=== PATIENT | female | born 1985 | race Caucasian/White ===

== ENCOUNTER 2022-02-20 03:33 | Emergency (ER) | payer MEDICAID, SELFPAY ==
--- NOTE | ~2022-02-20 | XR_ITS ---
EXAMINATION: XR CHEST CLINICAL INFORMATION: Shortness of breath. Cough. COMPARISON: None TECHNIQUE: Frontal view of the chest was obtained. FINDINGS: Cardiac leads overlie the chest. The lungs are well expanded. There is no focal consolidation, edema, or effusion. No pneumothorax. The cardiomediastinal silhouette is within normal limits. No acute osseous abnormality. XR/XR chest 1V IMPRESSION: Clear lungs.
[2022-02-20 03:41] VITALS: BP 113/57; PULSE 88; RESP 19; TEMP 36.7; O2SAT 98; BMI 27.8
[2022-02-20 04:06] LABS: Basophils Percent Auto 0.2 % (0-2); Eosinophils Absolute Auto 0.1 X10*3/uL (0.0-0.4); Eosinophils Percent Auto 1.1 % (0-4); Hematocrit 33.7 % (37.0-47.0); Hemoglobin 10.1 g/dl (12.0-16.0); Imm Gran Abs Auto 0.01 X10*3/uL (0.00-0.03); Imm Gran Pct Auto 0.2 % (0.0-0.4); Lymphocytes Absolute Auto 2.4 X10*3/uL (1.2-4.9); Lymphocytes Percent Auto 42.4 % (20-40); MANUAL DIFF FLAG NO; Mean Corpuscular Hemoglobin 22.5 pg (27.0-33.0); Mean Corpuscular Volume 75.2 fL (80.0-98.0); Mean Platelet Volume 10.7 fL (9.4-12.3); Monocytes Absolute Auto 0.6 X10*3/uL (0.1-1.2); Monocytes Percent Auto 11.5 % (2-11); Neutrophils Absolute Auto 2.5 x10*3/uL (2.0-8.3); Neutrophils Percent Auto 44.6 % (45-73); Platelet Count 287 X10*3/uL (160-400); Red Blood Count 4.48 X10*6/uL (4.20-5.50); Red Cell Distribution Width 16.8 % (11.0-16.0); White Blood Count 5.6 X10*3/uL (4.8-10.8)
--- NOTE | 2022-02-20 04:10 | ED.URI ---
HPI - URI/Sore Throat General Chief Complaint: Upper Respiratory Symptoms Stated Complaint: Asthmatic Time Seen by Provider: 02/20/22 04:02 Source: patient Mode of arrival: ambulatory Limitations: no limitations History of Present Illness HPI Narrative: Patient comes to the emergency room complaining complaining of dry cough multiple lacerations. Patient states that she ran her inhaler yesterday. Patient denies fever chills, no pain, no UTI symptoms Related Data Previous Rx's Medication Instructions Recorded albuterol sulfate 90 mcg/actuation 2 puff INHALATION Q4-6H PRN #8.5 g 02/20/22 aerosol inhaler benzonatate 100 mg capsule 100 mg PO TID PRN #14 cap 02/20/22 prednisone 50 mg tablet 50 mg PO DAILY #4 tab 02/20/22 Allergies Allergy/AdvReac Type Severity Reaction Status Date / Time ibuprofen [IBUPROFEN] Allergy Unknown UNKNOWN Unverified 06/17/20 16:45 Review of Systems Review of Systems: Constitutional : No Weight loss, No Fever, No Chills, No Night Sweats, No Fatigue, No Malaise ENT/Mouth : No Hearing loss, No Ear Pain, No Nasal Congestion, No Sinus Pain, No Hoarseness, No sore throat, No Rhinorrhea, No Swallowing Difficulty Eyes: No Eye Pain, No Swelling, No Redness, No Foreign Body, No Discharge, No Vision Changes Cardiovascular : No Chest Pain, No SOB, No Dyspnea on Exertion, No Orthopnea, No Edema, No Palpitations Respiratory : Complaining of breath cough wheezing shortness of breath at this time Gastrointestinal : No Nausea, No Vomiting, No Diarrhea, No Constipation, No abdominal Pain, No Hematochezia, No Melena Genitourinary : no irregular bleeding, No Dysuria, No Urinary Frequency, No Hematuria, No Urinary Incontinence, No Urgency, No Flank Pain, No Urinary Flow Changes, No Hesitancy Musculoskeletal : No joint pain, No Myalgias, No Joint Swelling Skin : No Skin Lesions, No rash Neuro : No Weakness, No Numbness, No Paresthesias, No Loss of Consciousness, No Dizziness, No Headache Psych : No Anxiety/Panic, No Depression, No SI/HI/AH/VH, No Social Issues, Heme/Lymph: No Bruising, No Bleeding,No Lymphadenopathy Endocrine : No Polyuria, No Polydipsia, No Temperature Intolerance [facility] Past Medical History Medical History (Updated 02/20/22 @ 05:17 by Johanna Strange MD) Asthma exacerbation Social History Social History Alcohol intake: never Patient Tobacco Use Status: Never used Tobacco Use of substances other than those prescribed or required for medical reasons: Yes Substance Use Type: Marijuana Substance Use Frequency: Daily Physical Exam Vital Signs: Vital Signs: Last Vital Signs Temp 98.1 F 02/20/22 03:41 Pulse 88 02/20/22 03:41 Resp 19 02/20/22 03:41 BP 113/57 L 02/20/22 03:41 Pulse Ox 98 02/20/22 03:41 BMI result Body Mass Index 27.8 Const: Other: Appearance: Alert. Oriented X3. No acute distress. Eyes: Pupils equal, round and reactive to light. ENT: Pharynx normal. Neck: Normal inspection. Neck supple. No lymph nodes noted. No crepitus CVS: Normal heart rate and rhythm. Pulses normal. Normal S1 and S2 Respiratory: No respiratory distress. Breath sounds normal. No Wheezing. No rales , actively coughing Abdomen: Soft and nontender. No rigidity. No distention. Skin: Skin warm and dry. Normal skin color. Normal skin turgor. Extremities: No lower extremity edema. No Lacerations. No Rash Neuro: Oriented X 3. No motor deficit. No sensory deficit. Moving all extremities. No slurred speech. CN 2 through 12 grossly intact Psych: calm, cooperative, normal affect Course Course Course Narrative: Patient's labs and chest x-ray, flu and COVID pending I discussed the labs and imaging with the patient, patient given 1 dose Tessalon Perles and prednisone. Oxygen saturation remains at 99% on room air. Patient breathing comfortably, occasional coughing, no wheezing MDM - URI/Sore Throat Lab Data Result diagrams: 02/20/22 04:00 02/20/22 04:00 Labs: Lab Results 02/20/22 02/20/22 02/20/22 Range/Units 04:00 04:00 04:00 WBC 5.6 (4.8-10.8) X10*3/uL RBC 4.48 (4.20-5.50) X10*6/uL Hgb 10.1 L (12.0-16.0) g/dl Hct 33.7 L (37.0-47.0) % MCV 75.2 L (80.0-98.0) fL MCH 22.5 L (27.0-33.0) pg MCHC 30.0 L (31.0-35.0) g/dl RDW 16.8 H (11.0-16.0) % Plt Count 287 (160-400) X10*3/uL MPV 10.7 (9.4-12.3) fL Immature Gran % (Auto) 0.2 (0.0-0.4) % Neut % (Auto) 44.6 L (45-73) % Lymph % (Auto) 42.4 H (20-40) % Foster % (Auto) 11.5 H (2-11) % Eos % (Auto) 1.1 (0-4) % Baso % (Auto) 0.2 (0-2) % Lymph # (Auto) 2.4 (1.2-4.9) X10*3/uL Foster # (Auto) 0.6 (0.1-1.2) X10*3/uL Eos # (Auto) 0.1 (0.0-0.4) X10*3/uL Baso # (Auto) 0.0 (0.0-0.2) X10*3/uL Abs Immat Gran (auto) 0.01 (0.00-0.03) X10*3/uL Absolute Neuts (auto) 2.5 (2.0-8.3) x10*3/uL Absolute Nucleated RBC 0.000 (0.0-0.012) X10*3/uL Nucleated RBC % (auto) 0.0 (0.0-0.2) /100WBC Sodium 139 (135-145) mmol/L Potassium 3.3 (3.3-5.1) mmol/L Chloride 104 (96-108) mmol/L Carbon Dioxide 26 (22-29) mmol/L Anion Gap 12 (12-20) BUN 13 (9-16) mg/dL Creatinine 0.73 (0.5-1.4) mg/dL Estim Creat Clear Calc 92.1 Estimated GFR > 60 Random Glucose 86 (60-115) mg/dL Calcium 9.1 (8.4-10.2) mg/dL COVID-19 (THELMA) Negative (Negative) COVID-19 Clin Com See Note Influenza Type A ([facility]) (Negative) Influenza Type B ([place]) (Negative) Influenza A & B Note 02/20/22 Range/Units 04:16 WBC (4.8-10.8) X10*3/uL RBC (4.20-5.50) X10*6/uL Hgb (12.0-16.0) g/dl Hct (37.0-47.0) % MCV (80.0-98.0) fL MCH (27.0-33.0) pg MCHC (31.0-35.0) g/dl RDW (11.0-16.0) % Plt Count (160-400) X10*3/uL MPV (9.4-12.3) fL Immature Gran % (Auto) (0.0-0.4) % Neut % (Auto) (45-73) % Lymph % (Auto) (20-40) % Foster % (Auto) (2-11) % Eos % (Auto) (0-4) % Baso % (Auto) (0-2) % Lymph # (Auto) (1.2-4.9) X10*3/uL Foster # (Auto) (0.1-1.2) X10*3/uL Eos # (Auto) (0.0-0.4) X10*3/uL Baso # (Auto) (0.0-0.2) X10*3/uL Abs Immat Gran (auto) (0.00-0.03) X10*3/uL Absolute Neuts (auto) (2.0-8.3) x10*3/uL Absolute Nucleated RBC (0.0-0.012) X10*3/uL Nucleated RBC % (auto) (0.0-0.2) /100WBC Sodium (135-145) mmol/L Potassium (3.3-5.1) mmol/L Chloride (96-108) mmol/L Carbon Dioxide (22-29) mmol/L Anion Gap (12-20) BUN (9-16) mg/dL Creatinine (0.5-1.4) mg/dL Estim Creat Clear Calc Estimated GFR Random Glucose (60-115) mg/dL Calcium (8.4-10.2) mg/dL COVID-19 ([facility]) (Negative) COVID-19 Clin Com Influenza Type A ([place]) Negative (Negative) Influenza Type B ([place]) Negative (Negative) Influenza A & B Note See Note Discharge Plan Discharge Clinical Impression: Asthma exacerbation, Upper respiratory infection Patient Disposition: Home, Self-Care Instructions: Asthma (ED) Additional Instructions: Please follow-up with your primary care physician tomorrow. If you have any worsening or new symptoms, please return to the emergency room or call 911 Prescriptions: New albuterol sulfate 90 mcg/actuation HFA aerosol inhaler 2 puff inhalation Q4-6H PRN (Reason: shortness of breath or wheezing) Qty: 8.5 1RF prednisone 50 mg tablet 50 mg PO DAILY Qty: 4 0RF benzonatate 100 mg capsule 100 mg PO TID PRN (Reason: cough) Qty: 14 0RF
[2022-02-20 04:20] LABS: COVID-19 Test Negative (Negative)
[2022-02-20] MEDS: Benzonatate 100 MG CAPSULE 200 MG PO (04:21)
[2022-02-20 04:24] LABS: Anion Gap 12 (12-20); Blood Urea Nitrogen 13 mg/dL (9-16); Calcium 9.1 mg/dL (8.4-10.2); Carbon Dioxide 26 mmol/L (22-29); Chloride 104 mmol/L (96-108); Creatinine Clr Calc Pharmacy 92.1; Estimated Glomerular Filt Rate > 60; Glucose Random 86 mg/dL (60-115); Potassium 3.3 mmol/L (3.3-5.1); Sodium 139 mmol/L (135-145)
[2022-02-20 04:38] LABS: IDNOW Serial# 16C4AD1C; Influenza A Negative (Negative); Influenza B2 Negative (Negative)
[2022-02-20] MEDS: predniSONE 20 MG TABLET 60 MG PO (05:38)
== END 2022-02-20 05:47 | disposition home or self-care (01) ==
LOC: HO.ED 05:44
PROVIDERS: Emergency Provider Emergency Medicine
DX: J06.9 Acute upper respiratory infection, unspecified (principal); J45.901 Unspecified asthma with (acute) exacerbation; Z20.822 Contact with and (suspected) exposure to COVID-19
CPT/HCPCS: 36415; 71045; 80048; 85025; 87502; 87635; 99283; 99284

== ENCOUNTER 2024-04-11 07:15 | Emergency (ER) | payer OTHER, SELFPAY ==
[2024-04-11 07:17] VITALS: BP 129/71; PULSE 68; RESP 20; TEMP 36.5; O2SAT 99; BMI 32.7
--- NOTE | 2024-04-11 07:24 | ED.ALLEREA ---
HPI - Allergic Reaction General Chief complaint: Allergic Reaction Stated complaint: Allergic reaction Time Seen by Provider: 04/11/24 07:20 Source: patient Mode of arrival: ambulatory Limitations: no limitations History of Present Illness ED Provider: Brooks ARNETT HPI narrative: 38-year-old female presents with runny nose, feeling that her throat is closing, itching, sneezing, all this has been going on for the past 2 days, patient reports over the past 2 days she has been at family member's homes who have pets, last night in particular she slept over her son's house who has a CT, since then symptoms have been worsening. She reports each time she comes in contact with an animal now symptoms seem to be getting more severe. She has not yet had allergy testing. She did not take anything for the symptoms. She denies chest pain, shortness of breath, changes in voice, drooling, nausea, vomiting, abdominal pain. Related Data Previous Rx's ?Medication ?Instructions ?Recorded albuterol sulfate 90 mcg/actuation 2 puff inhalation Q4-6H PRN 02/20/22 aerosol inhaler shortness of breath or wheezing #8.5 grams benzonatate 100 mg capsule 100 mg PO TID PRN cough #14 caps 02/20/22 prednisone 50 mg tablet 50 mg PO DAILY #4 tabs 02/20/22 diphenhydramine HCl 25 mg capsule 50 mg (2 x 25 mg) PO TID PRN 04/11/24 (Benadryl) allergic reaction #20 caps epinephrine 0.3 mg/0.3 mL 0.3 mg (0.3 mL) IM Q4H PRN 04/11/24 injection, auto-injector (EpiPen anaphylaxis #2 ea 2-Reji) loratadine 10 mg tablet 10 mg PO DAILY #30 tabs 04/11/24 prednisone 20 mg tablet 40 mg (2 x 20 mg) PO DAILY 5 days 04/11/24 #10 tabs Allergies Allergy/AdvReac Type Severity Reaction Status Date / Time ibuprofen [IBUPROFEN] Allergy Unknown UNKNOWN Verified 04/11/24 07:21 cat dander [cats] Allergy Sneezing Verified 04/11/24 07:21 Review of Systems Review of Systems: Yes all other systems are reviewed and are negative PMFSH Past Medical History Attestation statement: The following information was validated with the patient. Source: old records reviewed and nursing notes reviewed Medical History (Updated 04/11/24 @ 07:24 by MICHAEL Quiroga) Asthma exacerbation Social History Social History Alcohol intake: never Patient Tobacco Use Status: Never used Tobacco Substance Use Type: Marijuana Advance Directives: No Advance Directives Information Provided: Yes Do you have a plan to hurt others: No Plan Physical Exam ED Vital Signs: Vital Signs - 24 hr 04/11/24 07:17 04/11/24 07:47 Temperature 97.7 F 97.7 F Pulse Rate 68 68 Respiratory Rate 20 20 Blood Pressure 129/71 129/71 Pulse Oximetry 99 99 Oxygen Delivery Method Room Air Room Air BMI result Body Mass Index 32.7 vss Appearance: Alert.? Oriented X3.? No acute distress.? Speaking in full sentences controlling secretions well Head: Normocephalic, atraumatic, no step-offs or deformities Eyes: Pupils equal, round and reactive to light.? ENT: Pharynx normal.? Uvula midline. No edema, erythema, exudate or abscess throat. Clear rhinorrhea. Neck: Normal inspection.? Neck supple.? CVS: Normal heart rate and rhythm.? Pulses normal.? Respiratory: No respiratory distress.? Breath sounds normal.? Abdomen: Soft and nontender.? Skin: Skin warm and dry.? Normal skin color.? Normal skin turgor.? Extremities: No lower extremity edema.? No calf ttp. 5/5 strength to bilateral upper and lower extremities Neuro: Oriented X 3.? No motor deficit.? No sensory deficit. CN 2-12 intact Medical Decision Making Medical Decision Making MDM Narrative: 38-year-old female presents with allergy like symptoms after being exposed to cats and dogs which she is allergic to. Reports allergies seems to be getting worse Physical exam clear rhinorrhea. Patent airway. Vital signs stable. History and physical exam concerning for allergic reaction/allergies due to cats and dogs. No signs of airway compromise, or acute respiratory distress, anaphylaxis, pe, acs Plan will discharge with p.o. meds. Differential Diagnosis Differential Diagnoses: The differential diagnosis associated with the presentation includes History and physical exam concerning for allergic reaction/allergies due to cats and dogs. No signs of airway compromise, or acute respiratory distress, anaphylaxis, pe, acs Admission/Observation Consideration of admission/observation: Escalation of care including admission/observation considered No indicaiton External Record Review External record reviewed: Outpatient record Prescription Management I considered prescription management with: Other (EpiPen, prednisone, Benadryl) I did go into how to use an EpiPen in depth with patient, nurse Aaliyah at the bedside. Patient was able to read back and tell me exactly how to use 1. She understands it is only for emergency purposes and she should seek medical attention after she uses 1. Chronic Conditions Patient?s care impacted by: Other (asthma ) Social Determinants Patient?s care significantly limited by Social Determinants of Health including: Low income and Other Social Determinant of Health Discharge Plan Discharge Clinical Impression: Allergic reaction Patient Disposition: Home, Self-Care Additional Instructions: Take your medications as prescribed. If you were prescribed antibiotics today, it is important that you take your medication to their entirety, do not skip any doses, do not finish them early. Follow-up with your primary care provider this week. Return to the emergency department with new or worsening symptoms. Such as fevers, chills, chest pain, shortness of breath, nausea, vomiting, dizziness, headache, vision changes, lethargy In case of emergency call 911 How to use an EpiPen: ? Place the orange tip against the middle of the outer thigh. ? Swing and push the auto-injector firmly into the thigh until it ?clicks? ? Hold firmly in place for three seconds?count slowly, ?1, 2, 3? An EpiPen has been sent to your pharmacy this should only be used in severe emergency such as inability to breathe trouble speaking, shortness breath or any signs of anaphylaxis as discussed. If he use an EpiPen it is crucial you come in to an emergency department to be evaluated as you can have a rebound effect. Please follow-up with an allergy doctor. Prescriptions: New prednisone 20 mg tablet 40 mg PO DAILY 5 Days Qty: 10 0RF diphenhydramine HCl [Benadryl] 25 mg capsule 50 mg PO TID PRN (Reason: allergic reaction) Qty: 20 0RF epinephrine [EpiPen 2-Reji] 0.3 mg/0.3 mL auto-injector 0.3 mg IM Q4H PRN (Reason: anaphylaxis) Qty: 2 0RF loratadine 10 mg tablet 10 mg PO DAILY Qty: 30 0RF No Action albuterol sulfate 90 mcg/actuation HFA aerosol inhaler 2 puff inhalation Q4-6H PRN (Reason: shortness of breath or wheezing) Qty: 8.5 1RF prednisone 50 mg tablet 50 mg PO DAILY Qty: 4 0RF benzonatate 100 mg capsule 100 mg PO TID PRN (Reason: cough) Qty: 14 0RF Referrals: Physician,Unknown J [Primary Care Provider] - 2 days Interventions: ED Discharge Assessment Last Done: 04/11/24 07:47 Discharge Date/Time: 04/11/24 07:47 Print Language: [place] Islander
--- NOTE | 2024-04-11 07:30 | PC.NURSE ---
Addendum entered by Aaliyah Mart 04/11/24 07:32: verbalizes taking NO medications* Original Note: pt presents to the ED w/ cough/runny nose/sore throat s/p staying at her son's house who has cats and dogs. pt is allergic to these animals. pt verbalizing take medication prior to coming in/prior to being exposed to allergens. pt denies having epi pen/ever self administering. pt educated on use of epi pen. teachback provided by pt. pt resting in no apparent distress. no sob/wob noted. respirations even/unlabored. lung sounds - slightly wheezing throughout. plan of care ongoing.
[2024-04-11 07:47] VITALS: BP 129/71; PULSE 68; RESP 20; TEMP 36.5; O2SAT 99
== END 2024-04-11 07:47 | disposition home or self-care (01) ==
PROVIDERS: Emergency Provider Emergency Medicine
DX: L29.9 Pruritus, unspecified (principal); T78.40XA Allergy, unspecified, initial encounter; X58.XXXA Exposure to other specified factors, initial encounter
CPT/HCPCS: 99282; 99283

== ENCOUNTER 2024-04-24 03:24 | Emergency (ER) | payer OTHER, SELFPAY ==
--- NOTE | ~2024-04-24 | XR_ITS ---
EXAMINATION: XR LUMBOSACRAL SPINE CLINICAL INFORMATION: Lower back pain COMPARISON: None available. TECHNIQUE: Three views of the lumbosacral spine. FINDINGS: Alignment of the lumbar vertebral bodies and posterior elements appears anatomic. Vertebral body heights and intervertebral disc spaces are maintained. No acute fracture is seen. Sacroiliac joints appear intact. IUD noted in the pelvis. XR/XR lumbar spine 2-3V IMPRESSION: No acute findings identified.
[2024-04-24 03:27] VITALS: BP 112/59; PULSE 67; RESP 18; TEMP 36.7; O2SAT 99; BMI 25.5
[2024-04-24 03:48] LABS: MANUAL DIFF FLAG NO
[2024-04-24 03:49] LABS: Basophils Percent Auto 0.3 % (0-2); Eosinophils Absolute Auto 0.3 X10*3/uL (0.0-0.4); Eosinophils Percent Auto 2.6 % (0-4); Hematocrit 32.9 % (37.0-47.0); Hemoglobin 10.4 g/dl (12.0-16.0); Imm Gran Abs Auto 0.05 X10*3/uL (0.00-0.03); Imm Gran Pct Auto 0.4 % (0.0-0.4); Lymphocytes Absolute Auto 3.2 X10*3/uL (1.2-4.9); Lymphocytes Percent Auto 27.8 % (20-40); Mean Corpuscular HGB Conc 31.6 g/dl (31.0-35.0); Mean Corpuscular Hemoglobin 24.5 pg (27.0-33.0); Mean Corpuscular Volume 77.6 fL (80.0-98.0); Mean Platelet Volume 10.3 fL (9.4-12.3); Monocytes Absolute Auto 0.7 X10*3/uL (0.1-1.2); Monocytes Percent Auto 5.7 % (2-11); Neutrophils Absolute Auto 7.4 x10*3/uL (2.0-8.3); Neutrophils Percent Auto 63.2 % (45-73); Platelet Count 333 X10*3/uL (160-400); Red Blood Count 4.24 X10*6/uL (4.20-5.50); Red Cell Distribution Width 16.6 % (11.0-16.0); White Blood Count 11.6 X10*3/uL (4.8-10.8)
[2024-04-24 03:51] LABS: Appearance Urine Clear; Color Urine Yellow; Glucose Urine UA Negative (Negative); Leukocyte Esterase Urine Negative (Negative); Nitrite Urine Negative (Negative); Specific Gravity - Urine >= 1.030 (1.005-1.025); UMIC TRIGGER UACC YES; UPreg QC Valid YES; Urine Blood Moderate (2+) (Negative); Urine Ketones Trace mg/dL (Negative); Urine Pregnancy NEGATIVE (NEGATIVE); Urine Protein Negative (Neg-Trace)
[2024-04-24 04:02] LABS: Bacteria Urine None Seen (None Seen); Hyaline Casts Urine 0-2 /LPF (0-2); RBC Urine 0-2 /HPF (0-2); Squamous Epithelial Cell Urine 0-2 /HPF (0-2); WBC Urine 0-5 /HPF (0-5)
[2024-04-24 04:02] LABS: Alanine Aminotransferase 9 U/L (0-31); Albumin Level 3.8 g/dL (3.5-5.0); Alkaline Phosphatase 84 U/L (39-117); Anion Gap 14 (12-20); Aspartate Amino Transferase 15 U/L (5-31); Bilirubin Total 0.2 mg/dL (0.0-1.0); Blood Urea Nitrogen 15 mg/dL (9-16); Calcium 8.8 mg/dL (8.4-10.2); Carbon Dioxide 25 mmol/L (22-29); Chloride 107 mmol/L (96-108); Creatinine Clr Calc Pharmacy 82.3; Estimated Glomerular Filt Rate > 60; Glucose Random 98 mg/dL (60-115); Potassium 3.6 mmol/L (3.3-5.1); Sodium 142 mmol/L (135-145); Total Protein 6.9 g/dL (6.5-8.0)
--- NOTE | 2024-04-24 04:09 | ED_ITS ---
HPI - Female Genitourinary General Chief complaint: Urogenital-Female Stated complaint: Lower back pain/Frequent urination Time Seen by Provider: 04/24/24 04:09 Source: patient Mode of arrival: ambulatory Limitations: no limitations History of Present Illness ED Provider: yenny HERNANDEZ Narrative: Patient's history of low back pain off and on noticed increased pain for last 5 days in lower back increases on ambulation and movements denies any dysuria but does have frequency for last 5 days patient does finished her menstrual cycle does have a remote history of kidney stone no fever no chills no nausea no vomiting Related Data Previous Rx's ?Medication ?Instructions ?Recorded albuterol sulfate 90 mcg/actuation 2 puff inhalation Q4-6H PRN 02/20/22 aerosol inhaler shortness of breath or wheezing #8.5 grams benzonatate 100 mg capsule 100 mg PO TID PRN cough #14 caps 02/20/22 prednisone 50 mg tablet 50 mg PO DAILY #4 tabs 02/20/22 diphenhydramine HCl 25 mg capsule 50 mg (2 x 25 mg) PO TID PRN 04/11/24 (Benadryl) allergic reaction #20 caps epinephrine 0.3 mg/0.3 mL 0.3 mg (0.3 mL) IM Q4H PRN 04/11/24 injection, auto-injector (EpiPen anaphylaxis #2 ea 2-Reji) loratadine 10 mg tablet 10 mg PO DAILY #30 tabs 04/11/24 prednisone 20 mg tablet 40 mg (2 x 20 mg) PO DAILY 5 days 04/11/24 #10 tabs cyclobenzaprine 10 mg tablet 10 mg PO Q8H #20 tabs 04/24/24 tramadol 50 mg tablet 50 mg PO Q6H PRN pain #20 tabs 04/24/24 Allergies Allergy/AdvReac Type Severity Reaction Status Date / Time ibuprofen [IBUPROFEN] Allergy Unknown UNKNOWN Verified 04/24/24 03:29 cat dander [cats] Allergy Sneezing Verified 04/24/24 03:29 Review of Systems 2 Review of Systems: Yes all other systems are reviewed and are negative PMFSH Past Medical History Medical History Asthma exacerbation Social History Social History Alcohol intake: never Patient Tobacco Use Status: Never used Tobacco Smoked in Last 30 Days: No Substance Use Type: Marijuana Advance Directives: No Advance Directives Information Provided: No Do you have a plan to hurt others: No Plan Patient : No Physical Exam 2 Vital Signs: Vital Signs: Last Vital Signs Temp 98.0 F 04/24/24 03:27 Pulse 67 04/24/24 03:27 Resp 18 04/24/24 03:27 BP 112/59 L 04/24/24 03:27 Pulse Ox 99 04/24/24 03:27 O2 Del Method Room Air 04/24/24 03:27 BMI result Body Mass Index 25.5 Appearance: Alert. Oriented X3. No acute distress. Eyes: PERRLA, No Nystagmus ENT: Pharynx normal. Oral Mucosa moist Neck: Normal inspection. Neck supple. CVS: Normal heart rate and rhythm. Pulses normal. Respiratory: No respiratory distress. Equal air entry bilateral, no wheezing/rales/rhonchi Abdomen: Soft and nontender. Bowel sounds are present, no mass palpable, no CVA tenderness back: Diffuse tenderness L2-L3 area with paraspinal spasm SLR negative sacral sensation intact stable gait Skin: Skin warm and dry. Normal skin color. Normal skin turgor. Extremities: No lower extremity edema. No calf tenderness Neuro: Oriented X 3. No motor deficit. No sensory deficit.No cerebellar signs , cranial nerves II-XII intact Medications Administered Discontinued Medications Generic Name Dose Route Start Last Admin Trade Name Freq PRN Reason Stop Dose Admin Cyclobenzaprine HCl 10 mg 04/24/24 04:33 04/24/24 05:16 Cyclobenzaprine Hcl 10 Mg Tablet PO 04/24/24 04:34 10 mg ONCE ONE Administration Morphine Sulfate 15 mg 04/24/24 04:33 04/24/24 04:50 Morphine Sulfate Immed Release 15 Mg Tablet PO 04/24/24 04:34 15 mg ONCE ONE Administration Medical Decision Making Differential Diagnosis Differential Diagnoses: The differential diagnosis associated with the presentation includes UTI/lumbosacral strain/kidney stone Lab Data [facility] Lab Attestation statement: I reviewed the patient's lab results. 04/24/24 03:41 04/24/24 03:41 Labs: Lab Results 04/24/24 04/24/24 Range/Units 03:40 03:41 WBC 11.6 H (4.8-10.8) X10*3/uL RBC 4.24 (4.20-5.50) X10*6/uL Hgb 10.4 L (12.0-16.0) g/dl Hct 32.9 L (37.0-47.0) % MCV 77.6 L (80.0-98.0) fL MCH 24.5 L (27.0-33.0) pg MCHC 31.6 (31.0-35.0) g/dl RDW 16.6 H (11.0-16.0) % Plt Count 333 (160-400) X10*3/uL MPV 10.3 (9.4-12.3) fL Immature Gran % (Auto) 0.4 (0.0-0.4) % Neut % (Auto) 63.2 (45-73) % Lymph % (Auto) 27.8 (20-40) % Story % (Auto) 5.7 (2-11) % Eos % (Auto) 2.6 (0-4) % Baso % (Auto) 0.3 (0-2) % Lymph # (Auto) 3.2 (1.2-4.9) X10*3/uL Story # (Auto) 0.7 (0.1-1.2) X10*3/uL Eos # (Auto) 0.3 (0.0-0.4) X10*3/uL Baso # (Auto) 0.0 (0.0-0.2) X10*3/uL Abs Immat Gran (auto) 0.05 H (0.00-0.03) X10*3/uL Absolute Neuts (auto) 7.4 (2.0-8.3) x10*3/uL Absolute Nucleated RBC 0.000 (0.0-0.012) X10*3/uL Nucleated RBC % (auto) 0.0 (0.0-0.2) /100WBC Sodium 142 (135-145) mmol/L Potassium 3.6 (3.3-5.1) mmol/L Chloride 107 (96-108) mmol/L Carbon Dioxide 25 (22-29) mmol/L Anion Gap 14 (12-20) BUN 15 (9-16) mg/dL Creatinine 0.77 (0.5-1.4) mg/dL Estim Creat Clear Calc 82.3 Estimated GFR > 60 Random Glucose 98 (60-115) mg/dL Calcium 8.8 (8.4-10.2) mg/dL Total Bilirubin 0.2 (0.0-1.0) mg/dL AST 15 (5-31) U/L ALT 9 (0-31) U/L Alkaline Phosphatase 84 (39-117) U/L Total Protein 6.9 (6.5-8.0) g/dL Albumin 3.8 (3.5-5.0) g/dL Urine Color Yellow Urine Appearance Clear Urine pH 6.0 (5.0-9.0) Ur Specific [place] >= 1.030 H (1.005-1.025) Urine Protein Negative (Neg-Trace) mg/dL Urine Glucose (UA) Negative (Negative) mg/dL Urine Ketones Trace (Negative) mg/dL Urine Blood Moderate (2+) H (Negative) Urine Nitrite Negative (Negative) Ur Leukocyte Esterase Negative (Negative) Urine RBC 0-2 (0-2) /HPF Urine WBC 0-5 (0-5) /HPF Ur Squamous Epith Cells 0-2 (0-2) /HPF Urine Bacteria None Seen (None Seen) Hyaline Casts 0-2 (0-2) /LPF Urine Test NEGATIVE (NEGATIVE) Independent Interpretation I performed an independent interpretation of an: Plain X-Ray Interpretation: Negative Discharge Plan Discharge Clinical Impression: Low back pain Patient Disposition: Home, Self-Care Instructions: Back Pain (ED) Additional Instructions: Take pain medication and muscle relaxant as prescribed You do not have any kidney infection at this time Drink plenty of fluids Prescriptions: New cyclobenzaprine 10 mg tablet 10 mg PO Q8H Qty: 20 0RF tramadol 50 mg tablet 50 mg PO Q6H PRN (Reason: pain) Qty: 20 0RF No Action albuterol sulfate 90 mcg/actuation HFA aerosol inhaler 2 puff inhalation Q4-6H PRN (Reason: shortness of breath or wheezing) Qty: 8.5 1RF prednisone 50 mg tablet 50 mg PO DAILY Qty: 4 0RF benzonatate 100 mg capsule 100 mg PO TID PRN (Reason: cough) Qty: 14 0RF prednisone 20 mg tablet 40 mg PO DAILY 5 Days Qty: 10 0RF diphenhydramine HCl [Benadryl] 25 mg capsule 50 mg PO TID PRN (Reason: allergic reaction) Qty: 20 0RF epinephrine [EpiPen 2-Reji] 0.3 mg/0.3 mL auto-injector 0.3 mg IM Q4H PRN (Reason: anaphylaxis) Qty: 2 0RF loratadine 10 mg tablet 10 mg PO DAILY Qty: 30 0RF Print Language: [place]
[2024-04-24] MEDS: Morphine Sulfate Immed Release 15 MG TABLET PO (04:50)
[2024-04-24] MEDS: Cyclobenzaprine HCl 10 MG TABLET PO (05:16)
[2024-04-24 06:09] VITALS: BP 101/50; PULSE 64; RESP 16; TEMP 36.8; O2SAT 98
--- NOTE | 2024-04-24 07:53 | PC.NURSE ---
Pt remains sedated from previous medication administration, unsafe to discharge/drive herself home at this time.
[2024-04-24 08:25] VITALS: BP 90/45; PULSE 59; RESP 18; TEMP 36.7; O2SAT 97
[2024-04-24 09:51] VITALS: BP 90/45; PULSE 59; RESP 18; TEMP 36.7; O2SAT 97
== END 2024-04-24 09:52 | disposition home or self-care (01) ==
PROVIDERS: Emergency Provider Internal Medicine; PCP Internal Medicine
DX: M54.50 Low back pain, unspecified (principal); R35.0 Frequency of micturition; Z79.899 Other long term (current) drug therapy; Z87.442 Personal history of urinary calculi
CPT/HCPCS: 36415; 72100; 80053; 81001; 81025; 85025; 99283; 99284

== ENCOUNTER 2024-07-18 08:36 | Emergency (ER) | payer OTHER, SELFPAY ==
--- NOTE | ~2024-07-18 | XR_ITS ---
EXAMINATION: XR CHEST CLINICAL INFORMATION: Congestion, cough. COMPARISON: 01/31/2022. TECHNIQUE: 2 views of the chest were obtained. FINDINGS: Cardiac, hilar, and mediastinal contours are normal. Lungs are clear bilaterally. A perceived area of mildly increased density in the right inferior perihilar region appears to be related to superimposition artifact of overlying soft tissue and bone. Correlate with auscultation to the right lower lobe. Lungs otherwise clear. No effusion or pneumothorax. No bony or soft tissue abnormalities. XR/XR chest 2V IMPRESSION: No definite active disease. See above. Electronically signed by: Rene Means MD 07/18/2024 10:02 AM EDT
[2024-07-18 08:41] VITALS: BP 105/62; PULSE 88; RESP 18; TEMP 37.3; O2SAT 98; BMI 31.3
[2024-07-18 09:05] LABS: IDNOW Serial# 08D9AD1C; Strep A Nucleic Acid Negative (Negative)
[2024-07-18 09:36] LABS: Influenza A PCR NEGATIVE (Negative); Influenza B PCR NEGATIVE (Negative); Resp Syncy Virus RNA Qual PCR NEGATIVE (Negative); SARS COV2 PCR INHOUSE NEGATIVE (Negative)
[2024-07-18] MEDS: Albuterol/Iprat 2.5/0.5MG 3 ML AMPUL.NEB INHALE (10:41)
[2024-07-18 10:42] VITALS: PULSE 71; RESP 18; O2SAT 98
[2024-07-18] MEDS: Acetaminophen 325 MG TABLET 975 MG PO (10:55)
[2024-07-18] MEDS: predniSONE 20 MG TABLET 60 MG PO (10:55)
[2024-07-18] MEDS: Azithromycin 500 MG TABLET PO (10:55)
[2024-07-18 11:11] VITALS: BP 107/46; PULSE 89; RESP 14; TEMP 36.1; O2SAT 99
[2024-07-18 11:58] LABS: Appearance Urine Clear; Color Urine Yellow; Glucose Urine UA Negative (Negative); Leukocyte Esterase Urine Negative (Negative); Nitrite Urine Negative (Negative); Specific Gravity - Urine >= 1.030 (1.005-1.025); Urine Blood Negative (Negative); Urine Ketones 15 mg/dL (Negative); Urine Protein Negative (Neg-Trace)
--- NOTE | 2024-07-18 12:42 | ED.GENADULT ---
HPI - General Adult General Chief complaint: Upper Respiratory Symptoms Stated complaint: asthma, headache Time Seen by Provider: 07/18/24 09:13 History of Present Illness HPI narrative: Patient complains of several days of worsening cough with sputum, wheezing typical of prior asthma and runny nose body aches mild headache Denies chest pain denies nausea vomiting or diarrhea, no rash, no sore throat, right now she does feel some mild chest tightness, no dysuria Related Data Previous Rx's ?Medication ?Instructions ?Recorded albuterol sulfate 90 mcg/actuation 2 puff inhalation Q4-6H PRN 02/20/22 aerosol inhaler shortness of breath or wheezing #8.5 grams benzonatate 100 mg capsule 100 mg PO TID PRN cough #14 caps 02/20/22 prednisone 50 mg tablet 50 mg PO DAILY #4 tabs 02/20/22 diphenhydramine HCl 25 mg capsule 50 mg (2 x 25 mg) PO TID PRN 04/11/24 (Benadryl) allergic reaction #20 caps epinephrine 0.3 mg/0.3 mL 0.3 mg (0.3 mL) IM Q4H PRN 04/11/24 injection, auto-injector (EpiPen anaphylaxis #2 ea 2-Reji) loratadine 10 mg tablet 10 mg PO DAILY #30 tabs 04/11/24 prednisone 20 mg tablet 40 mg (2 x 20 mg) PO DAILY 5 days 04/11/24 #10 tabs cyclobenzaprine 10 mg tablet 10 mg PO Q8H #20 tabs 04/24/24 tramadol 50 mg tablet 50 mg PO Q6H PRN pain #20 tabs 04/24/24 albuterol sulfate 2.5 mg/3 mL 2.5 mg (3 mL) inhalation Q4-6H PRN 07/18/24 (0.083 %) solution for nebulization bronchospasm #75 mL albuterol sulfate 90 mcg/actuation 2 puff inhalation Q4-6H PRN 07/18/24 aerosol inhaler shortness of breath or wheezing #8.5 grams azithromycin 250 mg tablet 250 mg PO DAILY 4 days #4 tabs 07/18/24 (Zithromax) benzonatate 200 mg capsule 200 mg PO BID PRN cough #14 caps 07/18/24 prednisone 20 mg tablet 60 mg (3 x 20 mg) PO DAILY 4 days 07/18/24 #12 tabs Allergies Allergy/AdvReac Type Severity Reaction Status Date / Time ibuprofen [IBUPROFEN] Allergy Unknown UNKNOWN Verified 07/18/24 08:43 cat dander [cats] Allergy Sneezing Verified 07/18/24 08:43 [facility] Past Medical History Source: nursing notes reviewed Medical History Asthma exacerbation Social History Social History Alcohol intake: never Patient Tobacco Use Status: Never used Tobacco Substance Use Type: Marijuana Advance Directives: No Advance Directives Information Provided: Yes Do you have a plan to hurt others: No Plan Physical Exam ED Vital Signs: Vital Signs - 24 hr 07/18/24 08:41 07/18/24 10:42 07/18/24 11:11 Temperature 99.1 F 97.0 F Pulse Rate 88 71 89 Respiratory Rate 18 18 14 Blood Pressure 105/62 107/46 L Pulse Oximetry 98 99 Oxygen Delivery Method Room Air Room Air BMI result Body Mass Index 31.3 General appearance is no distress The eyes no redness or discharge The pharynx is clear without redness swelling or exudate, membranes are moist Neck is supple Chest had diminished breath sounds bilateral, no wheezing, no respiratory distress Heart no murmur Abdomen soft nontender Extremities full range motion x4 no calf swelling or tenderness no pedal edema skin no rash Course Course Course Narrative: Serology was negative for COVID flu and strep X-ray showed a questionable area of increased density in right inferior perihilar region, but likely artifact Given the worsening cough and productive cough with a questionable x-ray I am treating her with Zithromax antibiotic for bronchitiis She is given an albuterol treatment and her diminished lung sounds became normal with full symmetrical clear breath sounds no wheezing no respiratory distress speaking full sentences As she was getting ready for discharge she said she may or may not have felt some burning with urination so urine was sent and that was clear and patient is discharged Medications Administered Discontinued Medications Generic Name Dose Route Start Last Admin Trade Name Freq PRN Reason Stop Dose Admin Acetaminophen 975 mg 07/18/24 10:38 07/18/24 10:55 Acetaminophen 325 Mg Tablet PO 07/18/24 10:39 975 mg ONCE ONE Administration Albuterol/Ipratropium 3 ml 07/18/24 10:28 07/18/24 10:41 Albuterol/Iprat 2.5/0.5mg 3 Ml Ampul.Neb INHALE 07/18/24 10:29 3 ml ONCE ONE Administration Azithromycin 500 mg 07/18/24 10:38 07/18/24 10:55 Azithromycin 500 Mg Tablet PO 07/18/24 10:39 500 mg ONCE ONE Administration Prednisone 60 mg 07/18/24 10:28 07/18/24 10:55 Prednisone 20 Mg Tablet PO 07/18/24 10:29 60 mg ONCE ONE Administration Medical Decision Making Lab Data MDM Lab Attestation statement: I reviewed the patient's lab results. Labs: Lab Results 07/18/24 07/18/24 Range/Units 08:49 11:50 Urine Color Yellow Urine Appearance Clear Urine pH 7.0 (5.0-9.0) Ur Specific [place] >= 1.030 H (1.005-1.025) Urine Protein Negative (Neg-Trace) mg/dL Urine Glucose (UA) Negative (Negative) mg/dL Urine Ketones 15 (Negative) mg/dL Urine Blood Negative (Negative) Urine Nitrite Negative (Negative) Ur Leukocyte Esterase Negative (Negative) Influenza Type A (PCR) NEGATIVE (Negative) Influenza Type B (PCR) NEGATIVE (Negative) RSV RNA Qual (PCR) NEGATIVE (Negative) SARS-CoV-2 RNA (RT-PCR) NEGATIVE (Negative) S. pyogenes GrpA TEODORO Negative (Negative) Discharge Plan Discharge Clinical Impression: Asthma exacerbation, Bronchitis Patient Disposition: Home, Self-Care Additional Instructions: Use Zithromax antibiotic for the next 4 days for bronchitis I wrote for albuterol treatments and pump as well as prednisone for wheezing and asthma Urinalysis did not show any urinary tract infection Make sure to drink plenty of fluids Return any time for difficulty breathing any worse condition or any concerns Follow with primary care doctor next week if not improved Prescriptions: New prednisone 20 mg tablet 60 mg PO DAILY 4 Days Qty: 12 0RF benzonatate 200 mg capsule 200 mg PO BID PRN (Reason: cough) Qty: 14 0RF azithromycin [Zithromax] 250 mg tablet 250 mg PO DAILY 4 Days Qty: 4 0RF Rx Instructions: start on day 2 of therapy albuterol sulfate 90 mcg/actuation HFA aerosol inhaler 2 puff inhalation Q4-6H PRN (Reason: shortness of breath or wheezing) Qty: 8.5 0RF albuterol sulfate 2.5 mg /3 mL (0.083 %) solution for nebulization 2.5 mg inhalation Q4-6H PRN (Reason: bronchospasm) Qty: 75 0RF No Action albuterol sulfate 90 mcg/actuation HFA aerosol inhaler 2 puff inhalation Q4-6H PRN (Reason: shortness of breath or wheezing) Qty: 8.5 1RF prednisone 50 mg tablet 50 mg PO DAILY Qty: 4 0RF benzonatate 100 mg capsule 100 mg PO TID PRN (Reason: cough) Qty: 14 0RF prednisone 20 mg tablet 40 mg PO DAILY 5 Days Qty: 10 0RF diphenhydramine HCl [Benadryl] 25 mg capsule 50 mg PO TID PRN (Reason: allergic reaction) Qty: 20 0RF epinephrine [EpiPen 2-Reji] 0.3 mg/0.3 mL auto-injector 0.3 mg IM Q4H PRN (Reason: anaphylaxis) Qty: 2 0RF loratadine 10 mg tablet 10 mg PO DAILY Qty: 30 0RF cyclobenzaprine 10 mg tablet 10 mg PO Q8H Qty: 20 0RF tramadol 50 mg tablet 50 mg PO Q6H PRN (Reason: pain) Qty: 20 0RF Print Language: Turkmen
[2024-07-18 13:17] VITALS: BP 107/46; PULSE 89; RESP 14; TEMP 36.1; O2SAT 99
== END 2024-07-18 13:18 | disposition home or self-care (01) ==
PROVIDERS: Physician Assistant Medical; Emergency Provider Emergency Medicine; PCP Internal Medicine
DX: J45.901 Unspecified asthma with (acute) exacerbation (principal); R51.9 Headache, unspecified; R09.89 Other specified symptoms and signs involving the circulatory and respiratory systems; R07.89 Other chest pain; R05.9 Cough, unspecified; Z03.818 Encounter for observation for suspected exposure to other biological agents ruled out
CPT/HCPCS: 0241U; 71046; 81003; 87651; 94640; 99284

== ENCOUNTER → 2024-07-18 08:45 | Outpatient (BNV) | payer OTHER, SELFPAY | PROVIDERS: Emergency Provider Emergency Medicine; PCP Internal Medicine; Visit Provider Radiology Diagnostic Radiology | DX: R05.9 Cough, unspecified (principal); R07.9 Chest pain, unspecified | CPT/HCPCS: 71046 ==

== ENCOUNTER 2025-01-15 03:58 | Emergency (ER) | payer OTHER, SELFPAY ==
--- NOTE | ~2025-01-15 | CT_ITS ---
CLINICAL HISTORY: fall hs CT head without contrast Comparison: None Findings: No intra-axial mass, midline shift, hydrocephalus, or acute hemorrhage. No significant atrophy-like change or white matter disease. The visualized paranasal sinuses and mastoid air cells are normal. The orbits are unremarkable. There is no acute fracture. IMPRESSION: 1. No acute intracranial findings. This document has been electronically signed by: Ashlie Zabala MD on 01/15/2025 05:50:15
--- NOTE | ~2025-01-15 | CT_ITS ---
CLINICAL HISTORY: fall headstrike CT cervical spine without contrast Comparison: None Findings: Vertebral alignment is within normal limits. No significant degenerative change. No acute fractures or dislocations. No acute findings on limited view of the intracranial contents. Soft tissues of the neck are normal. Lung apices are clear. IMPRESSION: No acute findings. This document has been electronically signed by: Ashlie Zabala MD on 01/15/2025 05:58:46
[2025-01-15 04:05] VITALS: BP 112/72; BP 112/74; PULSE 78; PULSE 84; RESP 17; TEMP 36.6; O2SAT 100; O2SAT 99; BMI 24.2
--- NOTE | 2025-01-15 05:50 | PC.NURSE ---
pt biba from home, a&ox4, respirations even and unlabored. pt reports trip and fall into dresser when trying to change her pants.pt noted to have small lac to head, bleeding controlled. pt denies loc and thinners. no c collar in place, denies neck pain. vss.
[2025-01-15 06:15] VITALS: BP 98/48; PULSE 79; RESP 16; TEMP 37.1; O2SAT 99
--- NOTE | 2025-01-15 06:49 | ED.FALL ---
HPI - Fall General Chief Complaint: Fall Stated Complaint: FALL/HEAD LAC/ HEADACHE Time Seen by Provider: 01/15/25 06:46 Source: patient and old records reviewed Mode of arrival: ambulatory Limitations: no limitations History of Present Illness ED Provider: LENCHO HERNANDEZ Narrative: 39 yo female with PMH of asthma trip and fell last night putting her shoes on she hit head on dresser, no LOC but has a headache and small abrasion. She has a headache now and feels dizzy at times. No vomiting. No thinners. MD complaint: fall Onset (ago): minute(s) ([employer]) Fall from: standing Fall witnessed: yes, by family Place fall occurred: home Loss of consciousness: none Prolonged down time: no Symptoms prior to fall: none Context: tripped/slipped Location of injury: head Severity: moderate Quality: aching Associated symptoms (after fall): headache Related Data Previous Rx's ?Medication ?Instructions ?Recorded albuterol sulfate 90 mcg/actuation 2 puff inhalation Q4-6H PRN 02/20/22 aerosol inhaler shortness of breath or wheezing #8.5 grams benzonatate 100 mg capsule 100 mg PO TID PRN cough #14 caps 02/20/22 prednisone 50 mg tablet 50 mg PO DAILY #4 tabs 02/20/22 diphenhydramine HCl 25 mg capsule 50 mg (2 x 25 mg) PO TID PRN 04/11/24 (Benadryl) allergic reaction #20 caps epinephrine 0.3 mg/0.3 mL 0.3 mg (0.3 mL) IM Q4H PRN 04/11/24 injection, auto-injector (EpiPen anaphylaxis #2 ea 2-Reji) loratadine 10 mg tablet 10 mg PO DAILY #30 tabs 04/11/24 prednisone 20 mg tablet 40 mg (2 x 20 mg) PO DAILY 5 days 04/11/24 #10 tabs cyclobenzaprine 10 mg tablet 10 mg PO Q8H #20 tabs 04/24/24 tramadol 50 mg tablet 50 mg PO Q6H PRN pain #20 tabs 04/24/24 albuterol sulfate 2.5 mg/3 mL 2.5 mg (3 mL) inhalation Q4-6H PRN 07/18/24 (0.083 %) solution for nebulization bronchospasm #75 mL albuterol sulfate 90 mcg/actuation 2 puff inhalation Q4-6H PRN 07/18/24 aerosol inhaler shortness of breath or wheezing #8.5 grams azithromycin 250 mg tablet 250 mg PO DAILY 4 days #4 tabs 07/18/24 (Zithromax) benzonatate 200 mg capsule 200 mg PO BID PRN cough #14 caps 07/18/24 prednisone 20 mg tablet 60 mg (3 x 20 mg) PO DAILY 4 days 07/18/24 #12 tabs cyclobenzaprine 10 mg tablet 10 mg PO TID PRN muscle spasm #20 01/15/25 tabs ondansetron 4 mg disintegrating 4 mg PO Q8H PRN nausea and 01/15/25 tablet vomiting #20 tabs Allergies Allergy/AdvReac Type Severity Reaction Status Date / Time ibuprofen [IBUPROFEN] Allergy Unknown UNKNOWN Verified 01/15/25 04:17 cat dander [cats] Allergy Sneezing Verified 01/15/25 04:17 Review of Systems Review of Systems: Constitutional : No Weight loss, No Fever, No Chills ENT/Mouth : No sore throat, No Rhinorrhea Eyes: No Swelling, No Redness Cardiovascular : No Chest Pain, No SOB, NoEdema Respiratory : No Cough, No Sputum, No Wheezing Gastrointestinal : Positive Nausea, Positive Vomiting, positive Diarrhea, positive abdominal Pain, No Hematochezia, No Melena Genitourinary : No Dysuria, No Urinary Frequency, No Hematuria, No Urgency Musculoskeletal : No joint pain, No Myalgias, No Joint Swelling Skin : No Skin Lesions, No rash, pos lac Neuro : No Weakness, No Numbness, No Dizziness, No Headache All other systems reviewed and are negative. [facility] [place] Past Medical History Attestation statement: The following information was validated with the patient. Source: old records reviewed Medical History Asthma exacerbation Social History Social History Alcohol intake: current Patient Tobacco Use Status: Never used Tobacco Smoked in Last 30 Days: No Use of substances other than those prescribed or required for medical reasons: No Substance Use Type: Marijuana Advance Directives: No Advance Directives Information Provided: Yes Do you have a plan to hurt others: No Plan Patient : No Physical Exam Vital Signs: Vital Signs: Last Vital Signs Temp 98.8 F 01/15/25 06:15 Pulse 79 01/15/25 06:15 Resp 16 01/15/25 06:15 BP 98/48 L 01/15/25 06:15 Pulse Ox 99 01/15/25 06:15 O2 Del Method Room Air 01/15/25 06:15 BMI result Body Mass Index 24.2 Appearance: Alert. Oriented X3. No acute distress. Eyes: Pupils equal, round and reactive to light. ENT: Pharynx normal. no raccoon or lange sign, very small 0.5cm midline forehead superficial cut wound edges approximated no bleeding Neck: Normal inspection. Neck supple. CVS: Normal heart rate and rhythm. Pulses normal. Respiratory: No respiratory distress. Breath sounds normal. Abdomen: Soft and nontender. Skin: Skin warm and dry. Normal skin color. Normal skin turgor. Extremities: No lower extremity edema. No calf ttp Neuro: Oriented X 3. No motor deficit. No sensory deficit. CN2-12 intact Medical Decision Making Medical Decision Making MDM Narrative: 39 yo female with PMH of asthma here with isolated head strike causing headache and dizziness she is GCS 15, abrasion does not need sutures it is approximated and very small - at this time will treat as concussion, CT scans for head/neck trauma are negative. She is not on thinners can be managed with precautions Differential Diagnosis Differential Diagnoses: The differential diagnosis associated with the presentation includes concussion, abrasion, head injury Admission/Observation Consideration of admission/observation: Escalation of care including admission/observation considered GCS 15 stable for DC Independent Interpretation I performed an independent interpretation of an: CT Scan (no trauma) Radiology Impression Discussion of test interpretation with radiology: I have reviewed the radiologist's reading. External Record Review External record reviewed: Outpatient record Prescription Management I considered prescription management with: Pain Medication and Other Discharge Plan Discharge Clinical Impression: Concussion without loss of consciousness Patient Disposition: Home, Self-Care Instructions: Concussion (ED) Additional Instructions: CT scans are normal return for worsening pain, intractable vomiting, unable to eat or drink apply neosporin to the abrasion on your forehead brain rest for 1 week no alcohol, exercise, activities that cause headache Prescriptions: New cyclobenzaprine 10 mg tablet 10 mg PO TID PRN (Reason: muscle spasm) Qty: 20 0RF ondansetron 4 mg tablet,disintegrating 4 mg PO Q8H PRN (Reason: nausea and vomiting) Qty: 20 0RF No Action albuterol sulfate 90 mcg/actuation HFA aerosol inhaler 2 puff inhalation Q4-6H PRN (Reason: shortness of breath or wheezing) Qty: 8.5 1RF prednisone 50 mg tablet 50 mg PO DAILY Qty: 4 0RF benzonatate 100 mg capsule 100 mg PO TID PRN (Reason: cough) Qty: 14 0RF prednisone 20 mg tablet 40 mg PO DAILY 5 Days Qty: 10 0RF diphenhydramine HCl [Benadryl] 25 mg capsule 50 mg PO TID PRN (Reason: allergic reaction) Qty: 20 0RF epinephrine [EpiPen 2-Reji] 0.3 mg/0.3 mL auto-injector 0.3 mg IM Q4H PRN (Reason: anaphylaxis) Qty: 2 0RF loratadine 10 mg tablet 10 mg PO DAILY Qty: 30 0RF prednisone 20 mg tablet 60 mg PO DAILY 4 Days Qty: 12 0RF benzonatate 200 mg capsule 200 mg PO BID PRN (Reason: cough) Qty: 14 0RF azithromycin [Zithromax] 250 mg tablet 250 mg PO DAILY 4 Days Qty: 4 0RF Rx Instructions: start on day 2 of therapy albuterol sulfate 90 mcg/actuation HFA aerosol inhaler 2 puff inhalation Q4-6H PRN (Reason: shortness of breath or wheezing) Qty: 8.5 0RF albuterol sulfate 2.5 mg /3 mL (0.083 %) solution for nebulization 2.5 mg inhalation Q4-6H PRN (Reason: bronchospasm) Qty: 75 0RF cyclobenzaprine 10 mg tablet 10 mg PO Q8H Qty: 20 0RF tramadol 50 mg tablet 50 mg PO Q6H PRN (Reason: pain) Qty: 20 0RF Print Language: Uzbek
[2025-01-15] MEDS: Ondansetron ODT 4 MG TAB.RAPDIS TRANSLINGU (07:28)
[2025-01-15] MEDS: Acetaminophen 325 MG TABLET 975 MG PO (07:28)
[2025-01-15 07:32] VITALS: BP 98/48; PULSE 79; RESP 16; TEMP 37.1; O2SAT 99
== END 2025-01-15 07:32 | disposition home or self-care (01) ==
PROVIDERS: Emergency Provider Emergency Medicine
DX: S06.0X0A Concussion without loss of consciousness, initial encounter (principal); W22.09XA Striking against other stationary object, initial encounter; Y93.89 Activity, other specified; Y92.019 Unspecified place in single-family (private) house as the place of occurrence of the external cause; Y99.9 Unspecified external cause status
CPT/HCPCS: 70450; 72125; 99284

== ENCOUNTER → 2025-01-15 04:25 | Outpatient (BNV) | payer OTHER, SELFPAY | PROVIDERS: Emergency Provider Emergency Medicine; Visit Provider Radiology Diagnostic Radiology | DX: S09.90XA Unspecified injury of head, initial encounter (principal); W19.XXXA Unspecified fall, initial encounter | CPT/HCPCS: 70450; 72125 ==